=== PATIENT | male | born 1930 | race Caucasian/White ===

== ENCOUNTER → 2016-11-21 | Outpatient (REF) | payer MEDICARE, OTHER ==
[~2016-11-21] MED LIST: /PANT40TA OR; /TAMS4CA PO; ALFU10TA2 PO; ALLO100T OR; ALLO10TA PO; ASPI81TA45 OR; ATOR40TA PO; AVAP75TA5 OR; BRIM2OPD OU; CIPR500T4 OR; COLA100C PO; FINA5TAB2 PO; Gabapentin PO; LEVA250T PO; LEVA750T PO; MED FOR REFLUX PO; NORV5TAB PO; PANT40TA2 PO; PLAV75TA2 OR; TOVI4TAB PO; TRAM50TA2 PO; TRAV04OPD OU; TRIX0.022 TOP; [UNRECOGNIZED DRUG - OTHER] OU; lumigan OU
[2016-11-21 18:23] LABS: CALCIUM LEVEL 8.6 MG/DL (8.8-10.2); CREATININE FOR GFR 1.28 MG/DL (0.70-1.30); GLOMERULAR FILTRATION RATE 56.7 (>35); POTASSIUM SERUM 4.1 MEQ/L (3.5-5.1)
== END ==
LOC: M SFHCCLAY 10:38
PROVIDERS: ATTEND Family Medicine
DX: I10 Essential (primary) hypertension (principal)
CPT/HCPCS: 80048; G0463

== ENCOUNTER → 2016-12-18 | Outpatient (REF) | payer MEDICARE, OTHER ==
[~2016-12-18] MED LIST changes: -COLA100C PO; +COLA100C3 PO
== END ==
LOC: M LABDRAWC 16:36
PROVIDERS: ATTEND Urology
DX: N13.30 Unspecified hydronephrosis (principal)

== ENCOUNTER → 2017-05-22 | Outpatient (REF) | payer MEDICARE, OTHER ==
[~2017-05-22] MED LIST changes: -ATOR40TA PO; +ATOR40TA75 PO; -COLA100C3 PO; +COLA100C5 PO; +LEVA1TAB PO; -LEVA250T PO
[2017-05-22 17:13] LABS: ALBUMIN 3.5 GM/DL (3.2-5.2); ALBUMIN/GLOBULIN RATIO 1.3 (1.00-1.93); BILIRUBIN,TOTAL 0.7 MG/DL (0.2-1.0); CALCIUM LEVEL 8.4 MG/DL (8.8-10.2); CREATININE FOR GFR 1.23 MG/DL (0.70-1.30); GLOMERULAR FILTRATION RATE 59.4 (>35); POTASSIUM SERUM 4.1 MEQ/L (3.5-5.1); TOTAL PROTEIN 6.2 GM/DL (6.4-8.2); URIC ACID 5.1 MG/DL (3.5-7.2)
== END ==
LOC: M SFHCCLAY 09:56
PROVIDERS: ATTEND Family Medicine
DX: I10 Essential (primary) hypertension (principal); E78.2 Mixed hyperlipidemia; M1A.9XX0 Chronic gout, unspecified, without tophus (tophi)
CPT/HCPCS: 80053; 80061; 84550; G0463

== ENCOUNTER → 2018-03-14 | Outpatient (REF) | payer MEDICARE, OTHER ==
[2018-03-14 11:38] LABS: BASO % 0.4 % (0.0-1.0); EOS # 0.1 10^3/uL (0.0-0.50); HEMATOCRIT 40.7 % (42.0-52.0); HEMOGLOBIN 13.4 g/dl (13.5-17.5); IMMATURE GRANULOCYTE % 0.4 % (0-3.0); LYMPH # 1.2 10^3/uL (1.5-4.5); LYMPH % 24.5 % (24.0-44.0); MEAN CORPUSCULAR HEMOGLOBIN 31.3 pg (27.0-33.0); MEAN CORPUSCULAR HGB CONC 32.9 g/dl (32.0-36.5); MEAN CORPUSCULAR VOLUME 95.1 fl (80.0-96.0); MONO # 0.5 10^3/uL (0.0-0.8); MONO % 10.9 % (0.0-5.0); NEUTROPHILS # 3.1 10^3/uL (1.8-7.7); NEUTROPHILS % 61.8 % (36.0-66.0); PLATELET COUNT, AUTOMATED 234 10^3/uL (150-450); RED BLOOD COUNT 4.28 10^6/uL (4.30-6.10)
[2018-03-14 12:08] LABS: ALBUMIN 3.5 GM/DL (3.2-5.2); ALKALINE PHOSPHATASE 77 U/L (45-117); ALT/SGPT 20 U/L (12-78); ANION GAP 10 MEQ/L (8-16); AST/SGOT 9 U/L (7-37); BILIRUBIN,TOTAL 0.8 MG/DL (0.2-1.0); BLOOD UREA NITROGEN 23 MG/DL (7-18); CALCIUM LEVEL 8.1 MG/DL (8.8-10.2); CARBON DIOXIDE LEVEL 24 MEQ/L (21-32); CHLORIDE LEVEL 109 MEQ/L (98-107); CREATININE FOR GFR 1.27 MG/DL (0.70-1.30); GLOMERULAR FILTRATION RATE 57.1 (>35); GLUCOSE, FASTING 111 MG/DL (70-100); POTASSIUM SERUM 4.2 MEQ/L (3.5-5.1); SODIUM LEVEL 143 MEQ/L (136-145); TOTAL PROTEIN 6.2 GM/DL (6.4-8.2)
== END ==
LOC: M SFHCCLAY 09:23
DX: I10 Essential (primary) hypertension (principal)
CPT/HCPCS: 80053

== ENCOUNTER → 2018-09-27 | Outpatient (REF) | payer MEDICARE, OTHER ==
[~2018-09-27] MED LIST changes: -LEVA1TAB PO; +LEVA250T13 PO; -PANT40TA2 PO; +PANT40TA3 PO
[2018-09-27 17:56] LABS: ALBUMIN 3.4 GM/DL (3.2-5.2); BILIRUBIN,TOTAL 0.7 MG/DL (0.2-1.0); CALCIUM LEVEL 8.2 MG/DL (8.8-10.2); CHOLESTEROL RISK RATIO 3.112 (<5); CREATININE FOR GFR 1.24 MG/DL (0.70-1.30); GLOMERULAR FILTRATION RATE 58.7 (>35); POTASSIUM SERUM 4.4 MEQ/L (3.5-5.1); TOTAL PROTEIN 6.3 GM/DL (6.4-8.2)
== END ==
LOC: M SFHCCLAY 09:56
PROVIDERS: ATTEND Family Medicine
DX: I10 Essential (primary) hypertension (principal); E78.2 Mixed hyperlipidemia; Z23 Encounter for immunization
CPT/HCPCS: 80053; 80061; 90732; G0009; G0463

== ENCOUNTER → 2019-05-21 | Outpatient (REF) | payer MEDICARE, OTHER ==
[~2019-05-21] MED LIST changes: -/PANT40TA OR; -/TAMS4CA PO; -ALFU10TA2 PO; +ALFU10TA3 PO; +FLOM0.4C39 PO; +PROT1TAB2 OR
[2019-05-24 00:06] LABS: Lyme Disease IgG/IgM Antibodie <0.91 ISR (0.00-0.90); Lyme Disease IgM Ab Quantitati <0.80 index (0.00-0.79)
== END ==
LOC: M SFHCCLAY 14:22
PROVIDERS: ATTEND Nurse Practitioner Family
DX: S40.862A Insect bite (nonvenomous) of left upper arm, initial encounter (principal); W18.30XA Fall on same level, unspecified, initial encounter; Y92.009 Unspecified place in unspecified non-institutional (private) residence as the place of occurrence of the external cause

== ENCOUNTER → 2019-08-22 | Outpatient (REF) | payer MEDICARE, OTHER ==
[~2019-08-22] MED LIST changes: +ALFU10TA2 PO; -ALFU10TA3 PO
[2019-08-22 16:43] LABS: BASO % 0.7 % (0.0-1.0); EOS # 0.1 10^3/uL (0.0-0.5); EOS % 1.4 % (0.0-3.0); HEMATOCRIT 44.2 % (42.0-52.0); HEMOGLOBIN 14.3 g/dl (13.5-17.5); LYMPH # 1.4 10^3/uL (1.5-5.0); LYMPH % 24.2 % (24.0-44.0); MEAN CORPUSCULAR HEMOGLOBIN 30.6 pg (27.0-33.0); MEAN CORPUSCULAR HGB CONC 32.4 g/dl (32.0-36.5); MEAN CORPUSCULAR VOLUME 94.4 fl (80.0-96.0); MONO # 0.7 10^3/uL (0.0-0.8); MONO % 13.1 % (0.0-5.0); NEUTROPHILS # 3.4 10^3/uL (1.5-8.5); NEUTROPHILS % 60.2 % (36.0-66.0); PLATELET COUNT, AUTOMATED 256 10^3/uL (150-450); RED BLOOD COUNT 4.68 10^6/uL (4.30-6.10); WHITE BLOOD COUNT 5.7 10^3/uL (4.0-10.0)
[2019-08-22 16:52] LABS: ALBUMIN 3.9 GM/DL (3.2-5.2); ALT/SGPT 20 U/L (12-78); BILIRUBIN,TOTAL 0.7 MG/DL (0.2-1.0); BLOOD UREA NITROGEN 22 MG/DL (7-18); CALCIUM LEVEL 8.3 MG/DL (8.8-10.2); CARBON DIOXIDE LEVEL 29 MEQ/L (21-32); CHLORIDE LEVEL 104 MEQ/L (98-107); CHOLESTEROL LEVEL 196 MG/DL (<200); CREATININE FOR GFR 1.15 MG/DL (0.70-1.30); GLOMERULAR FILTRATION RATE > 60.0 (>35); GLUCOSE, FASTING 85 MG/DL (70-100); HDL CHOLESTEROL 69 MG/DL (>40); LDL CHOLESTEROL 114 MG/DL (<100); NON-HDL-C 127 MG/DL; POTASSIUM SERUM 4.3 MEQ/L (3.5-5.1); SODIUM LEVEL 140 MEQ/L (136-145); TRIGLYCERIDES LEVEL 65 MG/DL (<150)
== END ==
LOC: M SFHCCLAY 11:58
PROVIDERS: ATTEND Family Medicine
DX: I10 Essential (primary) hypertension (principal); E78.2 Mixed hyperlipidemia

== ENCOUNTER → 2019-11-10 | Outpatient (CLI) | payer MEDICARE, OTHER ==
[~2019-11-10] MED LIST changes: -ALFU10TA2 PO; +ALFU10TA3 PO
--- NOTE | 2019-11-10 16:39 | REP ---
Examination Requested: Cookie Swallow Reason For Exam: Oral pharyngeal dysphasia The procedure was performed by LIZ Momin, under the direct supervision of Dr. Hinds. The procedure was performed with Charla Isidro from speech pathology present. 5 ml aliquots of thin, pudding, mixed fruit, soft food, and hard food consistency barium was administered. Flash penetration was visualized with thin consistency barium. The detailed report of this examination will be provided by speech pathology. 1.4 minutes of fluoroscopy time was utilized for this procedure. Reviewed by LIZ Le 11/10/2019 12:50 P Electronically Signed by Declan Hinds MD 11/10/2019 04:31 P
== END ==
LOC: M ST 09:57
PROVIDERS: ATTEND Family Medicine
DX: R13.12 Dysphagia, oropharyngeal phase (principal)

== ENCOUNTER 2019-11-17 14:05 | Outpatient (RCR) | payer MEDICARE, OTHER | END 2019-12-16 | LOC: M ST 14:05 | PROVIDERS: ATTEND Family Medicine | DX: R13.10 Dysphagia, unspecified (principal) ==

== ENCOUNTER → 2020-02-26 | Outpatient (REF) | payer MEDICARE, OTHER | LOC: M LAB REF 17:40 | PROVIDERS: ATTEND Dermatology | DX: C44.622 Squamous cell carcinoma of skin of right upper limb, including shoulder (principal); C44.519 Basal cell carcinoma of skin of other part of trunk | CPT/HCPCS: 11102; 11103; 88305; G0463 ==

== ENCOUNTER → 2020-03-11 | Outpatient (REF) | payer MEDICARE, OTHER ==
[~2020-03-11] MED LIST changes: +PANT40TA29 PO; -PANT40TA3 PO
== END ==
LOC: M LAB REF 17:15
PROVIDERS: ATTEND Dermatology
DX: D03.59 Melanoma in situ of other part of trunk (principal)

== ENCOUNTER → 2020-03-26 | Outpatient (REF) | payer MEDICARE, OTHER | LOC: M LAB REF 18:06 | PROVIDERS: ATTEND Dermatology | DX: D23.62 Other benign neoplasm of skin of left upper limb, including shoulder (principal) ==

== ENCOUNTER → 2020-08-02 | Outpatient (REF) | payer MEDICARE, OTHER ==
[2020-08-02 16:12] LABS: BASO % 0.7 % (0.0-1.0); EOS # 0.1 10^3/uL (0.0-0.5); EOS % 2.4 % (0.0-3.0); HEMATOCRIT 44.7 % (42.0-52.0); HEMOGLOBIN 13.9 g/dl (13.5-17.5); LYMPH # 1.9 10^3/uL (1.5-5.0); LYMPH % 32.6 % (24.0-44.0); MEAN CORPUSCULAR HEMOGLOBIN 29.9 pg (27.0-33.0); MEAN CORPUSCULAR HGB CONC 31.1 g/dl (32.0-36.5); MEAN CORPUSCULAR VOLUME 96.1 fl (80.0-96.0); MONO # 0.8 10^3/uL (0.0-0.8); MONO % 13.4 % (0.0-5.0); NEUTROPHILS # 2.9 10^3/uL (1.5-8.5); NEUTROPHILS % 50.7 % (36.0-66.0); PLATELET COUNT, AUTOMATED 263 10^3/uL (150-450); RED BLOOD COUNT 4.65 10^6/uL (4.30-6.10); WHITE BLOOD COUNT 5.8 10^3/uL (4.0-10.0)
[2020-08-02 16:19] LABS: ALBUMIN 3.7 GM/DL (3.2-5.2); ALT/SGPT 14 U/L (12-78); BILIRUBIN,TOTAL 0.6 MG/DL (0.2-1.0); BLOOD UREA NITROGEN 23 MG/DL (7-18); CALCIUM LEVEL 8.6 MG/DL (8.8-10.2); CARBON DIOXIDE LEVEL 26 MEQ/L (21-32); CHLORIDE LEVEL 106 MEQ/L (98-107); CHOLESTEROL LEVEL 187 MG/DL (<200); CHOLESTEROL RISK RATIO 3.169 (<5); CREATININE FOR GFR 1.17 MG/DL (0.70-1.30); GLOMERULAR FILTRATION RATE > 60.0 (>35); GLUCOSE, FASTING 78 MG/DL (70-100); HDL CHOLESTEROL 59 MG/DL (>40); LDL CHOLESTEROL 110 MG/DL (<100); NON-HDL-C 128 MG/DL; POTASSIUM SERUM 4.3 MEQ/L (3.5-5.1); SODIUM LEVEL 140 MEQ/L (136-145); TOTAL PROTEIN 6.4 GM/DL (6.4-8.2); TRIGLYCERIDES LEVEL 91 MG/DL (<150); URIC ACID 5.5 MG/DL (3.5-7.2)
== END ==
LOC: M SFHCCLAY 11:13
PROVIDERS: ATTEND Family Medicine
DX: E78.2 Mixed hyperlipidemia (principal); I10 Essential (primary) hypertension; M1A.00X0 Idiopathic chronic gout, unspecified site, without tophus (tophi)

== ENCOUNTER → 2020-08-17 | Outpatient (CLI) | payer MEDICARE, OTHER ==
--- NOTE | 2020-08-19 00:38 | ECWPNPC ---
PATIENT NAME: AURA OWEN : 1930 GENDER: MALE VISIT DATE: 08/17/2020 DISCHARGE DATE: 08/17/20 0958 VISIT LOCKED DATE TIME: PHYSICIAN: BETHANY CRUZ PHYSICIAN PAGER NO: ACTIVE RESOURCE: BETHANY CRUZ REASON FOR APPOINTMENT 1. BACK- PT NEEDS TO ACCOMPANY HISTORY OF PRESENT ILLNESS GENERAL: 89-YEAR-OLD MALE IN FOR INITIAL PAIN CONSULT FOR LOW BACK PAIN. PATIENT HAS A HISTORY OF A SPINAL FUSION IN 2003 AND AGAIN IN 2006. HE IS CURRENTLY TAKING MELOXICAM WHICH SHE SAYS DOES HELP SOME. HE RATES HIS PAIN CURRENTLY AT AN 8 OUT OF 10 AND DESCRIBES IT ACHING, INTERMITTENT, AND SORE. HE DOES ADMIT TO A HISTORY OF BACK INJECTIONS HOWEVER HE SAID THEY DID NOT LAST. FALL RISK SCREENING: SCREENING :TWO OR MORE FALLS WITHOUT INJURY IN THE PAST YEAR PAIN SCREENING: PATIENT HAS A COMPLAINT OF ACUTE OR CHRONIC PAIN :YES LOCATION OF PAIN:LOW BACK, LEG(S) RIGHT LEG INTENSITY OF PAIN (SCALE OF 1 TO 10):8 WHAT DOES YOUR PAIN FEEL LIKE:ACHING, INTERMITTENT, SORE PATIENT STATES PAIN IS WORSE IN THE EVENING. DURATION:RHYTHMIC, PERIODIC PAIN IS INCREASED BY:ACTIVITIES, PROLONGED STANDING PAIN IS DECREASED BY:USE OF PAIN MEDICATIONS, SITTING NURSING NOTE: -. PAIN CENTER INTAKE QUESTIONS: DO YOU HAVE A HISTORY OF MRSA? :NO DO YOU TAKE A BLOOD THINNERS? :YES PLAVIX DO YOU HAVE ANY BLEEDING DISORDERS? :NO ANY NEW NUMBNESS OR WEAKNESS IN YOUR LEGS OR ARMS? :NO ANY PACEMAKER,DEFIBRILLATOR, OR DORSAL COLUMN STIMULATOR? :NO DO YOU HAVE ANY RASHES OR OPEN SORES? :NO ARE YOU ALLERGIC TO IV DYE? :NO ARE YOU DIABETIC? :NO ANY NEW PROBLEMS WITH YOUR MEDICATIONS? :NO HAVE YOU RECEIVED A VACCINE IN THE PAST 30 DAYS? :YES FLU VACCINE 2 WEEKS AGO DO YOU PLAN TO RECEIVE A VACCINE IN THE NEXT 21 DAYS? :NO DO YOU TAKE ANY IMMUNOSUPPRESSIVE MEDICATIONS? :NO ANY HISTORY OF SEIZURES? :NO ANY HISTORY OF CARDIAC ISSUES OR EVENTS? :YES HYPERTENSION DO YOU HAVE SLEEP APNEA? :NO ANY RECENT HEAD INJURY? :NO DO YOU HAVE ANY NEW INFECTIONS? :NO IS THERE A CHANCE YOU COULD BE ? :NO ARE YOU BREAST FEEDING? :NO WHEN DID YOU LAST EAT? : - WHEN DID YOU LAST DRINK? : - WHAT DID YOU LAST DRINK? : - NAME OF PERSON DRIVING YOU HOME? : - DO YOU HAVE ANY OTHER QUESTIONS OR CONCERNS? : - CURRENT MEDICATIONS TAKING TRAVATAN 0.004 % SOLUTION 1 DROP INTO AFFECTED EYE IN THE EVENING OPHTHALMIC ONCE A DAY TAKING DORZOLAMIDE HCL 2 % SOLUTION 1 DROP INTO AFFECTED EYE OPHTHALMIC ONCE DAILY TAKING BRIMONIDINE TARTRATE-TIMOLOL 0.2-0.5 % SOLUTION 1 DROP INTO AFFECTED EYE OPHTHALMIC DAILY TAKING FLUOROURACIL 5 % CREAM 1 APPLICATION EXTERNALLY ONCE A DAY TAKING FINASTERIDE 5 MG TABLET 1 TABLET ORALLY ONCE A DAY TAKING CLOPIDOGREL BISULFATE 75 MG TABLET 1 TABLET ORALLY ONCE A DAY TAKING ALFUZOSIN HCL ER 10 MG TABLET EXTENDED RELEASE 24 HOUR 1 TABLET IMMEDIATELY AFTER THE SAME MEAL ORALLY ONCE A DAY TAKING VESICARE 5 MG TABLET 1 TABLET ORALLY ONCE A DAY TAKING ALLOPURINOL 100 MG TABLET 1 TABLET ORALLY ONCE A DAY TAKING PANTOPRAZOLE SODIUM 40 MG TABLET DELAYED RELEASE 1 TABLET ORALLY ONCE A DAY TAKING PLAVIX 75 MG TABLET 1 TABLET ORALLY ONCE A DAY, NOTES: SEE ABOVE TAKING MELOXICAM 7.5 MG TABLET 1 TABLET IN PM ORALLY ONCE A DAY TAKING ATORVASTATIN CALCIUM 40 MG TABLET 1 TABLET ORALLY ONCE A DAY TAKING AVAPRO 75 MG TABLET 1 TABLET ORALLY ONCE A DAY NOT-TAKING VIAGRA 100 MG TABLET 1/2-1 TABLET NEEDED ORALLY ONCE A DAY MEDICATION LIST REVIEWED AND RECONCILED WITH THE PATIENT PAST MEDICAL HISTORY HYPERTENSION HX OF TIA HYPERLIPIDEMIA GOUT GLAUCOMA CATARACTS GERD BPH SPINAL STENOSIS 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 SOCIAL HISTORY GENERAL: TOBACCO USE ARE YOU A:NONSMOKER LATEX QUESTIONNAIRE LATEX ALLERGY : HAVE YOU EVER DEVELOPED ANY TYPE OF REACTION AFTER HANDLING LATEX PRODUCTS SUCH RUBBER GLOVES, CONDOMS, DIAPHRAGMS, BALLOONS, SOCKS, OR UNDERWEAR?NO LATEX ALLERGY : HAVE YOU EVER DEVELOPED ANY TYPE OF REACTION DURING OR AFTER DENTAL APPOINTMENT, VAGINAL/RECTAL EXAMINATION, SURGICAL PROCEDURE, OR ANY OTHER EXPOSURE?NO LATEX RISK : HAVE YOU EVER HAD ANY DIFFICULTY BREATHING OR HIVES AFTER EATING OR HANDLING ANY FRUITS, OR VEGETABLES; SUCH KIWI, BANANAS, STONE FRUITS, OR CHESTNUTSNO LATEX RISK : DO YOU HAVE A PREVIOUS PERSONAL HISTORY OF MORE THAN NINE SURGERIES, SPINA BIFIDA, OR REPEATED CATHERIZATIONS? NO LATEX RISK : ARE YOU FREQUENTLY EXPOSED TO LATEX PRODUCTS IN YOUR OCCUPATION?NO DATE ASKED : 08/16/2020 BMI CARE GOAL FOLLOW-UP ABOVE NORMAL BMI FOLLOW-UPDIETARY MANAGEMENT EDUCATION, GUIDANCE, AND COUNSELING ALCOHOL SCREENING DID YOU HAVE A DRINK CONTAINING ALCOHOL IN THE PAST YEAR?YES HOW OFTEN DID YOU HAVE SIX OR MORE DRINKS ON ONE OCCASION IN THE PAST YEAR?NEVER (0 POINTS) HOW MANY DRINKS DID YOU HAVE ON A TYPICAL DAY WHEN YOU WERE DRINKING IN THE PAST YEAR?1 OR 2 (0 POINTS) HOW OFTEN DID YOU HAVE A DRINK CONTAINING ALCOHOL IN THE PAST YEAR?TWO TO THREE TIMES PER WEEK (3 POINTS) POINTS3 INTERPRETATIONNEGATIVE RECREATIONAL DRUG USE DENIES. CAFFEINE CAFFEINE USE?YES HOW OFTEN AND HOW MUCH? 2 COFFEES DAILY SEXUAL HX HAD SEX IN THE LAST 12 MONTHS (VAGINAL, ORAL, OR ANAL)?: NO, HAVE YOU EVER HAD AN STD?: NO. HIV / HEP-C SCREENING HIV TEST OFFERED TO PATIENT:NO HEP-C TEST OFFERED TO PATIENT:NO -N/A SIKHISM NO ISLAM BELIEFS THAT WOULD IMPACT HEALTH CARE. 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 DIET: REGULAR. EXERCISE: NO REGULAR EXERCISE. MARITAL STATUS: . OTHERS AT HOME: SPOUSE. PAIN CLINIC PFS, CLERGY, PUBLIC HEALTH REFERRALS HAS THE PATIENT BEEN EDUCATED REGARDING HIS/HER PLAN OF CARE?YES HAS THE PATIENT BEEN EDUCATED REGARDING PAIN, THE RISK FOR PAIN, THE IMPORTANCE OF EFFECTIVE PAIN MANAGEMENT, AND THE PAIN ASSESSMENT PROCESS?YES ADVANCE DIRECTIVE ADVANCE DIRECTIVE DISCUSSED WITH PATIENT:YES PATIENT STATES HE HAS A DNR HOSPITALIZATION/MAJOR DIAGNOSTIC PROCEDURE SURGERY RELATED UTI 01/2012 REVIEW OF SYSTEMS CONSTITUTIONAL: ANY RECENT FEVER NO . CHILLS NO . WEIGHT CHANGE OF UNKNOWN REASONS NO . MUSCULOSKELETAL: ANY UNUSUAL JOINT PAIN OR SWELLING NOT MENTIONED NO . SYSTEMIC LUPUS NO . ANY NEUROMUSCULAR DISORDER NOT MENTIONED NO . LYME DISEASE NO . GASTROENTEROLOGY: ANY NEW CHANGE IN BOWEL CONTROL? NO . HISTORY OF LIVER DISORDER NOT MENTIONED NO . HISTORY OF UNUSUAL ABDOMINAL PAIN OR CRAMPING NOT MENTIONED NO . NO CONSTIPATION. GENITOURINARY: ANY NEW CHANGE IN BLADDER CONTROL? NO . ANY RENAL/KIDNEY CONDITON NOT MENTIONED NO . NEUROLOGY: HISTORY OF TBI NOT MENTIONED NO . OTHER NEW NUMBNESS OR PAIN PATTERNS NOT MENTIONED NO . NEW ONSET DIZZINESS OR NEUROLOGICAL CHANGES NOT MENTIONED NO . HISTORY OF SEVERE HEADACHES NOT MENTIONED NO . HISTORY OF STROKE OR NEUROLOGICAL DISORDER NOT MENTIONED NO . CARDIOLOGY: HEART SURGERY NO . CONGESTIVE HEART FAILURE/FLUID OVERLOAD NOT MENTIONED NO . HISTORY OF CHEST PAIN,IRREGULAR HEART BEAT NOT MENTIONED NO . RESPIRATORY: SHORTNESS OF BREATH ON EXERTION, WHEEZES, UNUSUAL COUGH NOT MENTIONED NO . ENDOCRINOLOGY: ADRENAL GLAND OR THYROID DISORDERS NOT MENTIONED NO . UNUSUAL URINATION, DIZZINESS OR LETHARGY NOT MENTIONED NO . VITAL SIGNS WT 159.0 LBS, HT 5'3.5", BMI 27.72 INDEX, BP 155/73 MM HG, HR 59 /MIN, RR 18 /MIN, TEMP 97.0 F, OXYGEN SAT % 93%, NA INITIALS AW 0902. EXAMINATION GENERAL EXAMINATION: GENERALNO ACUTE DISTRESS, WELL NOURISHED AND HYDRATED. PSYCHAPPROPRIATE MOOD AND AFFECT . LUNGS:CLEAR TO AUSCULTATION BILATERALLY, NO WHEEZES, RHONCHI, RALES. HEART:NO MURMURS, REGULAR RATE AND RHYTHM. BACK:DENIES POINT TENDERNESS ALONG CERVICAL, THORACIC, AND LUMBAR SPINE. . MUSCULOSKELETAL:EQUAL STRENGTH OF LOWER EXTREMITIES BILATERALLY . ASSESSMENTS CHRONIC LOW BACK PAIN - M54.5 (PRIMARY) TREATMENT OTHERS START TRAMADOL HCL TABLET, 50 MG, 1 TABLET NEEDED, ORALLY, ONCE A DAY, 30 DAYS, 30 NOTES: 89-YEAR-OLD MALE IN FOR INITIAL PAIN CONSULT. GIVEN PRESENTING SYMPTOMS AND RESULTS OF PHYSICAL EXAMINATION RECOMMENDED STARTING TRAMADOL 50 MG DAILY NEEDED FOR PAIN WITH FOLLOW-UP IN ONE MONTH TO DETERMINE EFFICACY OF TREATMENT. PATIENT DOES ADMIT THAT HE HAS AN UPCOMING MRI THIS WEEK. PATIENT HAS EXPRESSED UNDERSTANDING OF AND WAS IN AGREEMENT WITH TREATMENT PLAN. GIVEN TIME TO ASK QUESTIONS AND EXPRESS CONCERNS. , ISTOP REGISTRY REVIEWED AND DEMONSTRATES COMPLLIANCE. (REF # [id number] ) GAVE TRAMADOL EDUCATION TO PATIENT Dom LEE. PROCEDURE CODES FA211 ESTABILISHED PATIENT [facility] CHARGE DISPOSITION & COMMUNICATION FOLLOW UP 4 WEEKS (REASON: LOW BACK PAIN) ELECTRONICALLY SIGNED BY RAVI TENA ON 08/18/2020 AT 08:45 AM EST DISCLAIMER : THIS IS A VISIT SUMMARY EXTRACTED FROM THE [facility] [employer] CHART. IT IS NOT A COPY OF THE [employer] PROGRESS NOTE. RAMONA
== END ==
LOC: M PAIN 08:30
PROVIDERS: ATTEND Family Medicine
DX: M54.5 Low back pain (principal); K21.9 Gastro-esophageal reflux disease without esophagitis; Z86.73 Personal history of transient ischemic attack (TIA), and cerebral infarction without residual deficits; Z96.641 Presence of right artificial hip joint; Z96.611 Presence of right artificial shoulder joint; Z88.5 Allergy status to narcotic agent; Z79.01 Long term (current) use of anticoagulants; Z79.899 Other long term (current) drug therapy

== ENCOUNTER → 2020-10-04 | Outpatient (CLI) | payer MEDICARE, OTHER ==
--- NOTE | 2020-10-06 01:52 | ECWPNPC ---
PATIENT NAME: AURA OWEN : 1930 GENDER: MALE VISIT DATE: 10/04/2020 DISCHARGE DATE: 10/04/20 1105 VISIT LOCKED DATE TIME: PHYSICIAN: BETHANY CRUZ PHYSICIAN PAGER NO: ACTIVE RESOURCE: BETHANY CRUZ REASON FOR APPOINTMENT 1. 1 MONTH-LOW BACK PAIN HISTORY OF PRESENT ILLNESS DEPRESSION SCREENING: PHQ-2 (2015 EDITION) LITTLE INTEREST OR PLEASURE IN DOING THINGS?NOT AT ALL FEELING DOWN, DEPRESSED, OR HOPELESS?NOT AT ALL TOTAL SCORE0 89-YEAR-OLD MALE IN FOR CHRONIC PAIN FOLLOW-UP. PATIENT WAS STARTED ON TRAMADOL AT LAST CLINIC VISIT AND HE ADMITS TODAY THAT HE DISCONTINUED USE IT MADE HIM FEEL FOGGY. HE RATES HIS PAIN CURRENTLY AT A 0 OUT OF 10. FURTHER STATING THAT IF HE DOES EXPERIENCE PAIN HE JUST TAKES TYLENOL FOR IT. PATIENT DOES ADMIT TO AN UPCOMING SURGICAL CONSULT. GENERAL: -. FALL RISK SCREENING: SCREENING :TWO OR MORE FALLS WITHOUT INJURY IN THE PAST YEAR PAIN SCREENING: PATIENT HAS A COMPLAINT OF ACUTE OR CHRONIC PAIN :NO STATES NO PAIN TODAY. STATES BACK PAIN IN THE MORNING BUT IMPROVES THROUGHOUT THE DAY ONCE MOVING AROUND. NURSING NOTE: -. PAIN CENTER INTAKE QUESTIONS: DO YOU HAVE A HISTORY OF MRSA? :NO DO YOU TAKE A BLOOD THINNERS? :YES PLAVIX DO YOU HAVE ANY BLEEDING DISORDERS? :NO ANY NEW NUMBNESS OR WEAKNESS IN YOUR LEGS OR ARMS? :YES OCCASSIONAL TINGLING IN LEFT HAND AND FOREARM ANY PACEMAKER,DEFIBRILLATOR, OR DORSAL COLUMN STIMULATOR? :NO DO YOU HAVE ANY RASHES OR OPEN SORES? :NO ARE YOU ALLERGIC TO IV DYE? :NO ARE YOU DIABETIC? :NO ANY NEW PROBLEMS WITH YOUR MEDICATIONS? :YES STATES THE TRAMADOL MADE HIM FEEL NOT HIMSELF, GROGY, ETC. HAVE YOU RECEIVED A VACCINE IN THE PAST 30 DAYS? :NO DO YOU PLAN TO RECEIVE A VACCINE IN THE NEXT 21 DAYS? :YES IF SO WHAT VACCINE AND WHEN? COVID VACCINE NEXT WEEK DO YOU TAKE ANY IMMUNOSUPPRESSIVE MEDICATIONS? :NO IS THERE A CHANCE YOU COULD BE ? :NO ARE YOU BREAST FEEDING? :NO DO YOU HAVE ANY OTHER QUESTIONS OR CONCERNS? : - CURRENT MEDICATIONS TAKING TRAVATAN 0.004 % SOLUTION 1 DROP INTO AFFECTED EYE IN THE EVENING OPHTHALMIC ONCE A DAY TAKING DORZOLAMIDE HCL 2 % SOLUTION 1 DROP INTO AFFECTED EYE OPHTHALMIC ONCE DAILY TAKING BRIMONIDINE TARTRATE-TIMOLOL 0.2-0.5 % SOLUTION 1 DROP INTO AFFECTED EYE OPHTHALMIC DAILY TAKING FLUOROURACIL 5 % CREAM 1 APPLICATION EXTERNALLY ONCE A DAY TAKING FINASTERIDE 5 MG TABLET 1 TABLET ORALLY ONCE A DAY TAKING ALFUZOSIN HCL ER 10 MG TABLET EXTENDED RELEASE 24 HOUR 1 TABLET IMMEDIATELY AFTER THE SAME MEAL ORALLY ONCE A DAY TAKING VESICARE 5 MG TABLET 1 TABLET ORALLY ONCE A DAY TAKING ALLOPURINOL 100 MG TABLET 1 TABLET ORALLY ONCE A DAY TAKING PANTOPRAZOLE SODIUM 40 MG TABLET DELAYED RELEASE 1 TABLET ORALLY ONCE A DAY TAKING PLAVIX 75 MG TABLET 1 TABLET ORALLY ONCE A DAY NOT-TAKING MELOXICAM 7.5 MG TABLET 1 TABLET IN PM ORALLY ONCE A DAY NOT-TAKING ATORVASTATIN CALCIUM 40 MG TABLET 1 TABLET ORALLY ONCE A DAY NOT-TAKING AVAPRO 75 MG TABLET 1 TABLET ORALLY ONCE A DAY NOT-TAKING CLOPIDOGREL BISULFATE 75 MG TABLET 1 TABLET ORALLY ONCE A DAY, NOTES: DUPLICATE NOT-TAKING TRAMADOL HCL 50 MG TABLET 1 TABLET NEEDED ORALLY ONCE A DAY NOT-TAKING VIAGRA 100 MG TABLET 1/2-1 TABLET NEEDED ORALLY ONCE A DAY MEDICATION LIST REVIEWED AND RECONCILED WITH THE PATIENT PAST MEDICAL HISTORY HYPERTENSION HX OF TIA HYPERLIPIDEMIA GOUT GLAUCOMA CATARACTS GERD BPH SPINAL STENOSIS 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 SOCIAL HISTORY GENERAL: TOBACCO USE ARE YOU A:NONSMOKER LATEX QUESTIONNAIRE LATEX ALLERGY : HAVE YOU EVER DEVELOPED ANY TYPE OF REACTION AFTER HANDLING LATEX PRODUCTS SUCH RUBBER GLOVES, CONDOMS, DIAPHRAGMS, BALLOONS, SOCKS, OR UNDERWEAR?NO LATEX ALLERGY : HAVE YOU EVER DEVELOPED ANY TYPE OF REACTION DURING OR AFTER DENTAL APPOINTMENT, VAGINAL/RECTAL EXAMINATION, SURGICAL PROCEDURE, OR ANY OTHER EXPOSURE?NO LATEX RISK : HAVE YOU EVER HAD ANY DIFFICULTY BREATHING OR HIVES AFTER EATING OR HANDLING ANY FRUITS, OR VEGETABLES; SUCH KIWI, BANANAS, STONE FRUITS, OR CHESTNUTSNO LATEX RISK : DO YOU HAVE A PREVIOUS PERSONAL HISTORY OF MORE THAN NINE SURGERIES, SPINA BIFIDA, OR REPEATED CATHERIZATIONS? NO LATEX RISK : ARE YOU FREQUENTLY EXPOSED TO LATEX PRODUCTS IN YOUR OCCUPATION?NO DATE ASKED : 10/04/2020 BMI CARE GOAL FOLLOW-UP ABOVE NORMAL BMI FOLLOW-UPDIETARY MANAGEMENT EDUCATION, GUIDANCE, AND COUNSELING ALCOHOL SCREENING DID YOU HAVE A DRINK CONTAINING ALCOHOL IN THE PAST YEAR?YES HOW OFTEN DID YOU HAVE SIX OR MORE DRINKS ON ONE OCCASION IN THE PAST YEAR?NEVER (0 POINTS) HOW MANY DRINKS DID YOU HAVE ON A TYPICAL DAY WHEN YOU WERE DRINKING IN THE PAST YEAR?1 OR 2 (0 POINTS) HOW OFTEN DID YOU HAVE A DRINK CONTAINING ALCOHOL IN THE PAST YEAR?TWO TO THREE TIMES PER WEEK (3 POINTS) POINTS3 INTERPRETATIONNEGATIVE RECREATIONAL DRUG USE DENIES. CAFFEINE CAFFEINE USE?YES HOW OFTEN AND HOW MUCH? 2 COFFEES DAILY SEXUAL HX HAD SEX IN THE LAST 12 MONTHS (VAGINAL, ORAL, OR ANAL)?: NO, HAVE YOU EVER HAD AN STD?: NO. HIV / HEP-C SCREENING HIV TEST OFFERED TO PATIENT:NO HEP-C TEST OFFERED TO PATIENT:NO -N/A [employer]VENT[employer] NO BAPTIST BELIEFS THAT WOULD IMPACT HEALTH CARE. 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 DIET: REGULAR. EXERCISE: NO REGULAR EXERCISE. MARITAL STATUS: . OTHERS AT HOME: SPOUSE. ADVANCE DIRECTIVE ADVANCE DIRECTIVE DISCUSSED WITH PATIENT:YES PATIENT STATES HE HAS A DNR HOSPITALIZATION/MAJOR DIAGNOSTIC PROCEDURE SURGERY RELATED UTI 01/2012 REVIEW OF SYSTEMS CONSTITUTIONAL: ANY RECENT FEVER NO . CHILLS NO . WEIGHT CHANGE OF UNKNOWN REASONS NO . GASTROENTEROLOGY: NEW UNEXPLAINABLE CHANGES IN BOWEL CONTROL NO . CONSTIPATION NO . GENITOURINARY: ANY NEW CHANGE IN BLADDER CONTROL? NO . NEUROLOGY: NEW ONSET DIZZINESS OR NEUROLOGICAL CHANGES NOT MENTIONED NO . NEW NUMBNESS OR PAIN PATTERNS NOT MENTIONED AND PERTINENT TO TODAY'S VISIT NO . CARDIOLOGY: NEW CHEST PRESSURE NO . NEW CHEST PAIN NO . RESPIRATORY: UNEXPLAINABLE COUGH NO . NEW SHORTNESS OF BREATH NO . VITAL SIGNS WT 161.8 LBS, HT 5'3.5", BMI 28.21 INDEX, BP 142/71 MM HG, HR 67 /MIN, RR 18 /MIN, TEMP 97.6 F, OXYGEN SAT % 97%, SAFE IN ENV? (Y/N) YES, REVIEWED BY: JSJ. REID RN. EXAMINATION GENERAL EXAMINATION: GENERALNO ACUTE DISTRESS, WELL NOURISHED AND HYDRATED. PSYCHAPPROPRIATE MOOD AND AFFECT . LUNGS:CLEAR TO AUSCULTATION BILATERALLY, NO WHEEZES, RHONCHI, RALES. HEART:NO MURMURS, REGULAR RATE AND RHYTHM. ASSESSMENTS CHRONIC LOW BACK PAIN - M54.5 (PRIMARY) TREATMENT OTHERS NOTES: 89-YEAR-OLD MALE IN FOR CHRONIC PAIN FOLLOW-UP. GIVEN PRESENTING SYMPTOMS RECOMMEND PATIENT CONTINUE ON AN -NEEDED BASIS. PATIENT HAS EXPRESSED UNDERSTANDING OF AND WAS IN AGREEMENT WITH TREATMENT PLAN. GIVEN TIME TO ASK QUESTIONS AND EXPRESS CONCERNS. . PROCEDURE CODES FA211 ESTABILISHED PATIENT [facility] CHARGE DISPOSITION & COMMUNICATION FOLLOW UP NEEDED (REASON: BACK PAIN) ELECTRONICALLY SIGNED BY RAVI TENA ON 10/05/2020 AT 08:57 AM EST DISCLAIMER : THIS IS A VISIT SUMMARY EXTRACTED FROM THE [employer] CHART. IT IS NOT A COPY OF THE [employer] PROGRESS NOTE. RAMONA
== END ==
LOC: M PAIN 10:15
PROVIDERS: ATTEND Family Medicine
DX: M54.5 Low back pain (principal); G89.29 Other chronic pain; K21.9 Gastro-esophageal reflux disease without esophagitis; Z86.73 Personal history of transient ischemic attack (TIA), and cerebral infarction without residual deficits; Z96.641 Presence of right artificial hip joint; Z96.611 Presence of right artificial shoulder joint; Z88.5 Allergy status to narcotic agent; Z79.01 Long term (current) use of anticoagulants; Z79.899 Other long term (current) drug therapy